=== PATIENT | female | born 1965 | race Caucasian/White ===

== ENCOUNTER 2022-01-17 16:01 | Emergency (ER) | payer OTHER ==
[~2022-01-17] VITALS: Ht 165.1 cm; Wt 68.2 kg
[2022-01-17 16:10] VITALS: BP 149/81
[2022-01-17] MEDS ORDERED: ibuprofen tablet 400 MG TABLET PO ONE (16:50)
[2022-01-17] MEDS ORDERED: traMADol 50MG tablet PO ONE (16:50)
--- NOTE | 2022-01-17 16:59 | NUR ---
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
[2022-01-17] MEDS ORDERED: TRAM50TA2 PO (17:05)
[2022-01-17] MEDS ORDERED: NAPR-56 PO (17:05)
== END 2022-01-17 17:55 | disposition home or self-care (01) ==
LOC: ER 16:03
DX: S52.572A Other intraarticular fracture of lower end of left radius, initial encounter for closed fracture (principal); M25.532 Pain in left wrist; Z98.890 Other specified postprocedural states; Z79.899 Other long term (current) drug therapy; W19.XXXA Unspecified fall, initial encounter; Y93.89 Activity, other specified; Y92.89 Other specified places as the place of occurrence of the external cause; Y99.8 Other external cause status
CPT/HCPCS: 25605; 99284